=== PATIENT | male | born 1985 ===

== ENCOUNTER 2020-12-30 07:41 | Emergency (ER) | payer MEDICAID, OTHER, SELFPAY ==
[2020-12-30 08:59] VITALS: BP 132/80; PULSE 58; RESP 12; TEMP 36.6; O2SAT 100; BMI 25.0
--- NOTE | 2020-12-30 09:22 | ED.ABDPAIN ---
HPI - Abdominal Pain General Chief Complaint: Abdominal Pain Stated Complaint: abd pain Time Seen by Provider: 12/30/20 09:01 Source: patient Mode of arrival: ambulatory History of Present Illness HPI narrative: 35-year-old male with no significant past medical history presenting to the ED complaining of periumbilical abdominal pain and rectal bleeding worsening x2 weeks. Reports bright red blood per rectum about 2x daily. Reports to similar symptoms in the past. Denies taking anticoagulation. Denies nausea, vomiting, lightheadedness/dizziness, dysuria/hematuria, CP, diarrhea/constipation, history of hemorrhoids MD elicited complaint: abdominal pain Related Data Home Medications Medication Instructions Recorded Confirmed No Known Home Meds 12/30/20 12/30/20 Allergies Allergy/AdvReac Type Severity Reaction Status Date / Time No Known Allergies Allergy Verified 12/30/20 09:04 Review of Systems Review of Systems Constitutional: No Fever, No Chills, No Fatigue, No Malaise Cardiovascular: No Chest Pain, No SOB Respiratory: No Cough, No Dyspnea Gastrointestinal: No Nausea, No Vomiting, No Diarrhea, No Constipation, + Abdominal pain, + Hematochezia, No Melena Genitourinary: No Dysuria, No Urinary Frequency, No Hematuria, No Flank Pain Musculoskeletal: No joint pain, No Joint Swelling Skin: No Skin Lesions, No rash Neuro: No Weakness, No Numbness, No Loss of Consciousness, No Dizziness Yes all other systems are reviewed and are negative Physical Exam Vital Signs: Vital Signs: Last Vital Signs Temp 97.9 F 12/30/20 08:59 Pulse 58 12/30/20 08:59 Resp 12 12/30/20 08:59 BP 132/80 12/30/20 08:59 Pulse Ox 100 12/30/20 08:59 Body Mass Index 25.0 Const: General: cooperative, healthy appearing and no acute distress Orientation/consciousness: patient oriented x3 Limitations: no limitations HENMT: Head: Yes normal to inspection Ears: hearing grossly normal bilaterally General nose exam: Normal external nose present Face and sinus: Yes normal facial exam Eyes: General: appearance normal, both eyes and all related structures EOM: EOMs intact bilaterally Neck: Neck: Yes normal visual inspection and Yes no meningeal signs Resp: Effort & Inspection: normal respiratory effort Cardio: Rate: regular rate GI: Other: Brown stool noted on rectal Inspection: Yes normal to inspection Palpation (GI): Soft to palpation, nontender, no guarding and not rigid Rectal Exam - Male: Yes normal sphincter tone and Yes External hemorrhoid(s) present (Without evidence of thrombosis or active bleeding) : General: Yes no CVA tenderness Back/Spine/Pelvis: Back: no CVA tenderness Skin: Rashes: no rashes Wounds: no wounds Neuro: General: patient oriented x3 and no meningeal signs Gait exam (Neuro): Normal gait present Extrem: General: Yes normal to inspection Course Course Course Narrative: -no leukocytosis, H&H stable, ALT mildly elevated, labs otherwise unremarkable, occult stool negative >bleeding likely hemorrhoidal >> results discussed with patient including close colorectal follow-up MDM - Abdominal Pain MDM Narrative Medical decision making narrative: 35-year-old male with no significant past medical history presenting to the ED complaining of periumbilical abdominal pain and rectal bleeding worsening x2 weeks. On exam VSS, NAD, external hemorrhoid noted on rectal exam, abdomen soft/nontender. Rule out GI bleed vs hemorrhoidal bleeding. Lower concern for diverticulitis/colitis or appendicitis without tenderness on exam. Plan: Labs, UA, occult stool, reassess Medical Records Attestation: I reviewed the patient's medical records. Lab Data Attestation: I reviewed the patient's lab results. Result diagrams: 12/30/20 09:28 12/30/20 09:28 Labs: Lab Results 12/30/20 12/30/20 12/30/20 Range/Units 09:26 09:28 09:28 WBC 6.5 (4.8-10.8) X10*3/uL RBC 4.96 (4.60-5.80) X10*6/uL Hgb 15.7 (14.0-18.0) g/dl Hct 44.4 (42-52) % MCV 89.5 (80-98) fL MCH 31.7 (27.0-33.0) pg MCHC 35.4 (31.0-36.0) g/dl RDW 11.9 (11.0-16.0) % Plt Count 262 (160-400) X10*3/uL MPV 9.7 (9.4-12.4) fL Immature Gran % (Auto) 0.3 (0.0-0.4) % Neut % (Auto) 54.7 (45-73) % Lymph % (Auto) 33.1 (20-40) % [place] % (Auto) 9.7 (2-11) % Eos % (Auto) 1.4 (0-4) % Baso % (Auto) 0.8 (0-2) % Lymph # (Auto) 2.2 (1.2-4.9) X10*3/uL [place] # (Auto) 0.6 (0.1-1.2) X10*3/uL Eos # (Auto) 0.1 (0.0-0.4) X10*3/uL Baso # (Auto) 0.1 (0.0-0.2) X10*3/uL Abs Immat Gran (auto) 0.02 (0.00-0.03) X10*3/uL Absolute Neuts (auto) 3.6 (2.0-8.3) X10*3/uL Absolute Nucleated RBC 0.000 (0.0-0.012) X10*3/uL Nucleated RBC % (auto) 0.0 (0.0-0.2) /100WBC PT (10.8-13.0) SEC INR (0.9-1.1) APTT (24.1-38.0) SEC Sodium 140 (135-145) mmol/L Potassium 4.1 (3.3-5.1) mmol/L Chloride 105 (96-108) mmol/L Carbon Dioxide 28 (22-29) mmol/L Anion Gap 11 L (12-20) BUN 11 (9-16) mg/dL Creatinine 0.97 (0.5-1.4) mg/dL Estim Creat Clear Calc 99.3 Estimated GFR > 60 Random Glucose 100 (60-115) mg/dL Calcium 9.8 (8.4-10.2) mg/dL Magnesium 2.3 (1.6-2.6) mg/dL Total Bilirubin 0.7 (0.0-1.0) mg/dL Direct Bilirubin 0.2 (0.0-0.5) mg/dL AST 37 (5-37) U/L ALT 71 H (0-40) U/L Alkaline Phosphatase 95 (39-117) U/L Total Protein 7.9 (6.5-8.0) g/dL Albumin 4.9 (3.5-5.0) g/dL Lipase (8-78) U/L Stool Occult Blood NEGATIVE (NEGATIVE) 12/30/20 12/30/20 Range/Units 09:28 09:28 WBC (4.8-10.8) X10*3/uL RBC (4.60-5.80) X10*6/uL Hgb (14.0-18.0) g/dl Hct (42-52) % MCV (80-98) fL MCH (27.0-33.0) pg MCHC (31.0-36.0) g/dl RDW (11.0-16.0) % Plt Count (160-400) X10*3/uL MPV (9.4-12.4) fL Immature Gran % (Auto) (0.0-0.4) % Neut % (Auto) (45-73) % Lymph % (Auto) (20-40) % [place] % (Auto) (2-11) % Eos % (Auto) (0-4) % Baso % (Auto) (0-2) % Lymph # (Auto) (1.2-4.9) X10*3/uL [place] # (Auto) (0.1-1.2) X10*3/uL Eos # (Auto) (0.0-0.4) X10*3/uL Baso # (Auto) (0.0-0.2) X10*3/uL Abs Immat Gran (auto) (0.00-0.03) X10*3/uL Absolute Neuts (auto) (2.0-8.3) X10*3/uL Absolute Nucleated RBC (0.0-0.012) X10*3/uL Nucleated RBC % (auto) (0.0-0.2) /100WBC PT 11.9 (10.8-13.0) SEC INR 1.0 (0.9-1.1) APTT 35.8 (24.1-38.0) SEC Sodium (135-145) mmol/L Potassium (3.3-5.1) mmol/L Chloride (96-108) mmol/L Carbon Dioxide (22-29) mmol/L Anion Gap (12-20) BUN (9-16) mg/dL Creatinine (0.5-1.4) mg/dL Estim Creat Clear Calc Estimated GFR Random Glucose (60-115) mg/dL Calcium (8.4-10.2) mg/dL Magnesium (1.6-2.6) mg/dL Total Bilirubin (0.0-1.0) mg/dL Direct Bilirubin (0.0-0.5) mg/dL AST (5-37) U/L ALT (0-40) U/L Alkaline Phosphatase (39-117) U/L Total Protein (6.5-8.0) g/dL Albumin (3.5-5.0) g/dL Lipase 17 (8-78) U/L Stool Occult Blood (NEGATIVE) Discharge Plan Discharge Clinical Impression: Bleeding hemorrhoid Patient Disposition: Home, Self-Care Instructions: Hemorrhoids (ED) Additional Instructions: Your blood count was stable today in the ED Your stool did not have blood in it It is most likely your bleeding from an external hemorrhoid You should follow-up with the colorectal doctor If the bleeding persists or continues to have abdominal pain, fever, nausea or vomiting return to the ED Prescriptions: No Action No Known Home Meds RF: 0 Referrals: Sonido Benjamin [Physician] - 5 days PMF Past Medical History Attestation statement: The following information was validated with the patient. Social History Social History Advance Directives: No Advance Directives Information Provided: No
[2020-12-30 09:35] LABS: MANUAL DIFF FLAG NO
[2020-12-30 09:38] LABS: Basophils Absolute Auto 0.1 X10*3/uL (0.0-0.2); Basophils Percent Auto 0.8 % (0-2); Eosinophils Absolute Auto 0.1 X10*3/uL (0.0-0.4); Eosinophils Percent Auto 1.4 % (0-4); Hematocrit 44.4 % (42-52); Hemoglobin 15.7 g/dl (14.0-18.0); Imm Gran Abs Auto 0.02 X10*3/uL (0.00-0.03); Imm Gran Pct Auto 0.3 % (0.0-0.4); Lymphocytes Absolute Auto 2.2 X10*3/uL (1.2-4.9); Lymphocytes Percent Auto 33.1 % (20-40); Mean Corpuscular HGB Conc 35.4 g/dl (31.0-36.0); Mean Corpuscular Hemoglobin 31.7 pg (27.0-33.0); Mean Corpuscular Volume 89.5 fL (80-98); Mean Platelet Volume 9.7 fL (9.4-12.4); Monocytes Absolute Auto 0.6 X10*3/uL (0.1-1.2); Monocytes Percent Auto 9.7 % (2-11); Neutrophils Absolute Auto 3.6 X10*3/uL (2.0-8.3); Neutrophils Percent Auto 54.7 % (45-73); Platelet Count 262 X10*3/uL (160-400); Red Blood Count 4.96 X10*6/uL (4.60-5.80); Red Cell Distribution Width 11.9 % (11.0-16.0); White Blood Count 6.5 X10*3/uL (4.8-10.8)
[2020-12-30 09:43] LABS: OBS Int Ctl Valid YES; OBS1 NEGATIVE (NEGATIVE)
[2020-12-30 09:49] LABS: Prothrombin Time 11.9 SEC (10.8-13.0)
[2020-12-30 09:52] LABS: Partial Thromboplastin Time 35.8 SEC (24.1-38.0)
[2020-12-30 09:59] LABS: Alanine Aminotransferase 71 U/L (0-40); Albumin Level 4.9 g/dL (3.5-5.0); Alkaline Phosphatase 95 U/L (39-117); Anion Gap 11 (12-20); Aspartate Amino Transferase 37 U/L (5-37); Bilirubin Direct 0.2 mg/dL (0.0-0.5); Bilirubin Total 0.7 mg/dL (0.0-1.0); Blood Urea Nitrogen 11 mg/dL (9-16); Calcium 9.8 mg/dL (8.4-10.2); Carbon Dioxide 28 mmol/L (22-29); Chloride 105 mmol/L (96-108); Creatinine Clr Calc Pharmacy 99.3; Estimated Glomerular Filt Rate > 60; Glucose Random 100 mg/dL (60-115); Lipase 17 U/L (8-78); Magnesium 2.3 mg/dL (1.6-2.6); Potassium 4.1 mmol/L (3.3-5.1); Sodium 140 mmol/L (135-145); Total Protein 7.9 g/dL (6.5-8.0)
== END 2020-12-30 12:10 | disposition home or self-care (01) ==
PROVIDERS: Physician Assistant; Emergency Provider Emergency Medicine
DX: K64.4 Residual hemorrhoidal skin tags (principal); R10.33 Periumbilical pain
CPT/HCPCS: 36415; 80048; 80076; 82272; 83690; 83735; 85025; 85610; 85730; 99282; 99283

== ENCOUNTER 2021-09-17 13:08 | Emergency (ER) | payer MEDICAID, OTHER, SELFPAY ==
--- NOTE | ~2021-09-17 | XR_ITS ---
EXAMINATION: XR LUMBOSACRAL SPINE CLINICAL INFORMATION: Low back pain radiating to right leg x6 months COMPARISON: None TECHNIQUE: Three views of the lumbosacral spine. FINDINGS: There is normal lumbar lordosis. The vertebral heights and alignment is normal. No visible acute fracture, dislocation or subluxation seen. There is no lytic process. XR/XR lumbar spine 2-3V IMPRESSION: Unremarkable lumbar spine exam.
[2021-09-17 13:18] VITALS: BP 111/78; PULSE 78; RESP 18; TEMP 36.8; O2SAT 99; BMI 25.8
--- NOTE | 2021-09-17 14:51 | ED.BACK ---
HPI - Back Pain/Injury General Chief Complaint: Back Pain/Injury Stated Complaint: back pain Source: patient and executive secretary Mode of arrival: ambulatory Limitations: language barrier History of Present Illness HPI Narrative: 36 years old male is here today for increasing lower back pain radiating to right posterior leg. Patient denies injury. Patient reports that the pain started about 6 months ago. 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 Patient denies any acute injury. Patient reports that the getting progressively worse. 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 Patient denies fecal or urinary incontinence. Denies any spinal tenderness. MD elicited complaint: back pain Pertinent past history: prior back pain (For the last 6 months) Onset (ago): month(s) Timing: intermittent Severity: moderate Related Data Previous Rx's Medication Instructions Recorded cyclobenzaprine 10 mg tablet 10 mg PO BID PRN #20 tab 09/17/21 ibuprofen 600 mg tablet 600 mg PO Q8H PRN #20 tab 09/17/21 Allergies Allergy/AdvReac Type Severity Reaction Status Date / Time No Known Allergies Allergy Verified 12/30/20 09:04 Review of Systems Review of Systems: Constitutional : No Weight loss, No Fever, No Chills, No Night Sweats, No Fatigue, No Malaise ENT/Mouth : No Hearing loss, No Ear Pain, No Nasal Congestion, No Sinus Pain, No Hoarseness, No sore throat, No Rhinorrhea, No Swallowing Difficulty Eyes: No Eye Pain, No Swelling, No Redness, No Foreign Body, No Discharge, No Vision Changes Cardiovascular : No Chest Pain, No SOB, No Dyspnea on Exertion, No Orthopnea, No Edema, No Palpitations Respiratory : No Cough, No Sputum, No Wheezing, No Smoke Exposure, No Dyspnea Gastrointestinal : No Nausea, No Vomiting, No Diarrhea, No Constipation, No abdominal Pain, No Hematochezia, No Melena Genitourinary : no irregular bleeding, No Dysuria, No Urinary Frequency, No Hematuria, No Urinary Incontinence, No Urgency, No Flank Pain, No Urinary Flow Changes, No Hesitancy Musculoskeletal : No joint pain, Myalgias, No Joint Swelling, low back pain Skin : No Skin Lesions, No rash Neuro : No Weakness, No Numbness, No Paresthesias, No Loss of Consciousness, No Dizziness, No Headache Yes all other systems are reviewed and are negative [facility] Social History Social History Advance Directives: No Advance Directives Information Provided: Yes Physical Exam Vital Signs: Vital Signs: Last Vital Signs Temp 98.3 F 09/17/21 13:18 Pulse 78 09/17/21 13:18 Resp 18 09/17/21 13:18 BP 111/78 09/17/21 13:18 Pulse Ox 99 09/17/21 13:18 BMI result Body Mass Index 25.8 Const: General: healthy appearing, no acute distress and well developed Nutritional Appearance: well nourished Orientation/consciousness: patient oriented x3 HENMT: Head: Yes normal to inspection, Yes normocephalic and Yes atraumatic Face and sinus: Yes normal facial exam Mouth: Normal oral and palatal mucosa present Throat: Yes posterior oropharynx normal, Yes tonsils normal and Yes uvula midline Eyes: General: appearance normal, both eyes and all related structures Neck: Neck: Yes normal visual inspection, Yes full ROM and Yes trachea midline Thyroid: Thyroid normal Resp: Effort & Inspection: normal respiratory effort, able to speak in complete sentences, no tracheal deviation and symmetric chest movement Auscultation: clear to auscultation bilaterally Cardio: Jugular venous distension: no JVD Rate: regular rate Heart sounds: S1 normal heart sound present, S2 normal heart sound present, no gallops and no murmurs GI: Inspection: Yes normal to inspection and No distended Palpation (GI): Soft to palpation, not firm, nontender and No hepatosplenomegaly present Auscultation: normal bowel sounds : General: Yes no CVA tenderness Back/Spine/Pelvis: Back: no CVA tenderness Cervical Spine: normal cervical lordosis Thoracic/Lumbar Spine: thoracic and lumbar spine normal to inspection Sacroiliac joints: on the left (Tenderness) Skin: General skin exam: elasticity normal, turgor normal and dry skin Neuro: General: patient oriented x3 Psych: Appearance: grossly normal Mental Status: mental status grossly normal Speech and movement: Normal speech and movement present Affect: normal affect Attitude: cooperative Thought process: Normal thought process present Thought content: Normal thought content present Insight: Good insight present (Psych) Judgement: Good judgement present (Psych) Course Course Course Narrative: 36-year-old male is here today for low back pain. Pain in paraspinal muscle region on the right side, radiating to back of right leg. Denies any fecal or urinary incontinence. Negative for spinal tenderness. Will do lumbar spinal x-ray medicate patient with ibuprofen. Reevaluation(s) Reevaluation #1: X-ray negative for any acute processes. Will send patient home with muscle relaxer and ibuprofen. Patient is to follow-up with pain clinic, patient was encouraged to call [facility] for PCP. Patient might need physical therapy. MDM - Back Pain/Injury Imaging Data Lumbosacral spine x-ray: Attestation: I personally reviewed and interpreted this imaging study as follows: Radiologist's impression: FINDINGS: There is normal lumbar lordosis. The vertebral heights and alignment is normal. No visible acute fracture, dislocation or subluxation seen. There is no lytic process. Discharge Plan Discharge Clinical Impression: Strain of lumbar region Patient Disposition: Home, Self-Care Instructions: Chronic Back Pain (DC), Lower Back Exercises (ED) Additional Instructions: Te vieron aqu? hoy por un dolor de espalda. Brock radiograf?a fue negativa para cualquier proceso mignon. Roger un seguimiento con el [facility] de [place] de [place] en [facility]. El n?cale de tel?fono es [phone] Tambi?n puede hacer un seguimiento con el [facility] [place] del [facility]. Se le brandie? gregory?n para relajante muscular. Aseg?rese de no conducir ni operar namita?n equipo pesado mientras mallorie sophie medicamentos. Puede regresar al departamento de emergencias si sophie s?ntomas empeoran o si experimenta alg?n s?ntoma preocupante adicional. Prescriptions: New cyclobenzaprine 10 mg tablet 10 mg PO BID PRN (Reason: muscle spasm) Qty: 20 RF: 0 ibuprofen 600 mg tablet 600 mg PO Q8H PRN (Reason: pain) Qty: 20 RF: 0 Referrals: Félix Doshi MD [Physician] - 1 week (Low back pain radiating to right leg) Interventions: ED Discharge Assessment Last Done: 09/17/21 15:41 Discharge Date/Time: 09/17/21 15:50 Print Language: Thai
[2021-09-17] MEDS: Ibuprofen 600 MG TABLET PO (15:28)
== END 2021-09-17 15:50 | disposition home or self-care (01) ==
PROVIDERS: Emergency Provider Internal Medicine
DX: S39.012A Strain of muscle, fascia and tendon of lower back, initial encounter (principal); X50.0XXA Overexertion from strenuous movement or load, initial encounter; Y93.89 Activity, other specified; Y92.009 Unspecified place in unspecified non-institutional (private) residence as the place of occurrence of the external cause; Y99.0 Civilian activity done for income or pay
CPT/HCPCS: 72100; 99283

== ENCOUNTER 2021-11-12 08:23 | Emergency (ER) | payer MEDICAID, OTHER, SELFPAY ==
[2021-11-12 08:44] VITALS: BP 117/71; PULSE 66; RESP 16; TEMP 36.6; O2SAT 100; BMI 25.0
--- NOTE | 2021-11-12 09:30 | ED.GENADULT ---
HPI - General Adult General Chief complaint: General Medical Stated complaint: abd labs Time Seen by Provider: 11/12/21 09:16 Source: patient History of Present Illness HPI narrative: This is a 36-year-old male who complains of some bright red blood per rectum that he had last week. The patient in the past was told he had hemorrhoid hemorrhoids. He was prescribed some cream. He had a blood test done earlier this week which apparently showed he was anemic and was advised to come to the emergency department. He feels lightheaded at times. Denies any chest pain shortness of breath, abdominal pain or any recent rectal bleeding in the past 3-4 days. He denies any rectal pain. He is not on any anti coagulant Related Data Previous Rx's Medication Instructions Recorded cyclobenzaprine 10 mg tablet 10 mg PO BID PRN #20 tab 09/17/21 ibuprofen 600 mg tablet 600 mg PO Q8H PRN #20 tab 09/17/21 docusate sodium 100 mg capsule 100 mg PO BID 10 Days #20 cap 11/12/21 (Colace) ferrous sulfate 325 mg (65 mg 325 mg PO BID #60 tab 11/12/21 iron) tablet hydrocortisone 2.5 % topical cream 1 appl HI BEDTIME PRN #30 g 11/12/21 with perineal applicator (Anusol-HC) Allergies Allergy/AdvReac Type Severity Reaction Status Date / Time No Known Allergies Allergy Verified 11/12/21 08:44 Review of Systems Review of Systems: Yes all other systems are reviewed and are negative Constitutional: Constitutional: Reports as per HPI and Denies fever(s) Eyes: Eyes: Reports as per HPI and Reports no additional eye complaints ENT: Reports system reviewed and no additional complaints, except as documented, Reports as per HPI, Reports dizziness, Denies nasal congestion, Denies nasal discharge and Denies sore throat Cardiovascular: Cardiovascular: Reports as per HPI, Denies chest pain and Denies dyspnea Respiratory: Respiratory: Reports as per HPI, Denies cough and Denies dyspnea Gastrointestinal: Gastrointestinal: Reports as per HPI, Denies abdominal pain, Reports hematochezia, Denies diarrhea, Denies vomiting and Denies hematemesis Genitourinary: Genitourinary: Reports as per HPI, Denies hematuria, Denies dysuria and Denies urinary frequency Musculoskeletal: Musculoskeletal: Reports no additional musculoskeletal complaints and Denies numbness Integumentary/Breasts: Skin/Breast: Reports as per HPI and Denies rash Neurologic: Reports as per HPI, Reports dizziness, Denies focal weakness and Denies numbness Psychiatric: Psychiatric: Reports no additional psychiatric complaints and Reports as per HPI Endocrine: Endocrine: Reports no additional endocrine complaints and Reports as per HPI Hematologic/Lymphatic: Hematologic/Lymphatic: Reports no additional hematologic/lymphatic complaints, Reports as per HPI and Reports other (No peripheral edema) [facility] Social History Social History Advance Directives: No Advance Directives Information Provided: No Physical Exam ED Vital Signs: Vital Signs - 24 hr 11/12/21 08:44 Temperature 97.8 F Pulse Rate 66 Respiratory Rate 16 Blood Pressure 117/71 Pulse Oximetry 100 BMI result Body Mass Index 25.0 Const General: cooperative and no acute distress Orientation/consciousness: patient oriented x3 HENMT Head: Yes normal to inspection General nose exam: Normal external nose present Mouth: moist mucous membranes Throat: Yes posterior oropharynx normal Eyes General: appearance normal, both eyes and all related structures Eyelids: Yes eyelids normal (Borderline conjunctival pallor) Pupils: Equal, round and reactive pupils present Resp Effort & Inspection: normal respiratory effort Auscultation: clear to auscultation bilaterally Cardio Rate: regular rate Rhythm: regular rhythm Heart sounds: S1 normal heart sound present, S2 normal heart sound present, no gallops, no murmurs and no rubs GI Palpation (GI): Soft to palpation and nontender Rectal Exam - Male: Yes normal sphincter tone, Yes heme negative stool and Yes External hemorrhoid(s) present (Single wound 1.5 cm, not bleeding) Skin Other: Warm and dry, borderline mild pallor Neuro General: patient oriented x3 Cranial nerves: Yes Equal, round and reactive pupils present Psych Speech and movement: Normal speech and movement present Affect: normal affect Medical Decision Making MDM Narrative Medical decision making narrative: Patient had rectal bleeding last week, but it is stopped now. Patient does have an external hemorrhoid on exam but no active bleeding. Rectal exam revealed heme-negative scant material. Patient is moderately anemic but does not require transfusion at this time especially the fact that he does not appear to have any active bleeding anymore. Will treat patient with Anusol-HC, stool softener, iron, and the patient can follow up with Gastroenterology or his primary care physician Lab Data Lab results reviewed: Yes I reviewed the patient's lab results. Result diagrams: 11/12/21 09:33 11/12/21 09:33 Labs: Lab Results 11/12/21 11/12/21 11/12/21 Range/Units 09:32 09:33 09:33 WBC 4.5 L (4.8-10.8) X10*3/uL RBC 3.62 L (4.60-5.80) X10*6/uL Hgb 9.1 L (14.0-18.0) g/dl Hct 29.6 L (42.0-52.0) % MCV 81.8 (80.0-98.0) fL MCH 25.1 L (27.0-33.0) pg MCHC 30.7 L (31.0-36.0) g/dl RDW 13.0 (11.0-16.0) % Plt Count 318 (160-400) X10*3/uL MPV 9.1 L (9.4-12.4) fL Immature Gran % (Auto) 0.2 (0.0-0.4) % Neut % (Auto) 46.2 (45-73) % Lymph % (Auto) 39.1 (20-40) % [place] % (Auto) 11.2 H (2-11) % Eos % (Auto) 2.2 (0-4) % Baso % (Auto) 1.1 (0-2) % Lymph # (Auto) 1.8 (1.2-4.9) X10*3/uL [place] # (Auto) 0.5 (0.1-1.2) X10*3/uL Eos # (Auto) 0.1 (0.0-0.4) X10*3/uL Baso # (Auto) 0.1 (0.0-0.2) X10*3/uL Abs Immat Gran (auto) 0.01 (0.00-0.03) X10*3/uL Absolute Neuts (auto) 2.1 (2.0-8.3) x10*3/uL Absolute Nucleated RBC 0.000 (0.0-0.012) X10*3/uL Nucleated RBC % (auto) 0.0 (0.0-0.2) /100WBC Sodium 140 (135-145) mmol/L Potassium 4.1 (3.3-5.1) mmol/L Chloride 108 (96-108) mmol/L Carbon Dioxide 29 (22-29) mmol/L Anion Gap 7 L (12-20) BUN 12 (9-16) mg/dL Creatinine 0.89 (0.5-1.4) mg/dL Estim Creat Clear Calc 107.2 Estimated GFR > 60 Random Glucose 101 (60-115) mg/dL Calcium 9.7 (8.4-10.2) mg/dL Total Bilirubin 0.4 (0.0-1.0) mg/dL AST 22 D (5-37) U/L ALT 35 (0-40) U/L Alkaline Phosphatase 75 D (39-117) U/L Total Protein 7.1 (6.5-8.0) g/dL Albumin 4.4 (3.5-5.0) g/dL Stool Occult Blood NEGATIVE (NEGATIVE) Discharge Plan Discharge Clinical Impression: External hemorrhoid, Anemia Patient Disposition: Home, Self-Care Instructions: Hemorrhoids (ED), Anemia (ED) Additional Instructions: Follow-up with Gastroenterology. Return for any new or worsened symptoms such as recurrent rectal bleeding, dizziness, chest pain or shortness of breath. You do have moderate anemia however at this point he did not require a blood transfusion, and her bleeding seems to have stopped. Use Anusol-HC as prescribed for the hemorrhoid. Drink plenty of water and use a stool softener such as Colace 100 mg twice a day for the next 10 days. Use the iron as prescribed to help you replete your red blood cells. Prescriptions: New hydrocortisone [Anusol-HC] 2.5 % cream with perineal applicator 1 appl HI BEDTIME PRN (Reason: hemorrhoids) Qty: 30 0RF ferrous sulfate 325 mg (65 mg iron) tablet 325 mg PO BID Qty: 60 0RF docusate sodium [Colace] 100 mg capsule 100 mg PO BID 10 Days Qty: 20 0RF No Action cyclobenzaprine 10 mg tablet 10 mg PO BID PRN (Reason: muscle spasm) Qty: 20 0RF ibuprofen 600 mg tablet 600 mg PO Q8H PRN (Reason: pain) Qty: 20 0RF Referrals: Mitchel Elizabeth [Physician] - 3 days Discharge Date/Time: 11/12/21 10:33
[2021-11-12 09:37] LABS: MANUAL DIFF FLAG NO
[2021-11-12 09:40] LABS: Basophils Absolute Auto 0.1 X10*3/uL (0.0-0.2); Basophils Percent Auto 1.1 % (0-2); Eosinophils Absolute Auto 0.1 X10*3/uL (0.0-0.4); Eosinophils Percent Auto 2.2 % (0-4); Hematocrit 29.6 % (42.0-52.0); Hemoglobin 9.1 g/dl (14.0-18.0); Imm Gran Abs Auto 0.01 X10*3/uL (0.00-0.03); Imm Gran Pct Auto 0.2 % (0.0-0.4); Lymphocytes Absolute Auto 1.8 X10*3/uL (1.2-4.9); Lymphocytes Percent Auto 39.1 % (20-40); Mean Corpuscular HGB Conc 30.7 g/dl (31.0-36.0); Mean Corpuscular Hemoglobin 25.1 pg (27.0-33.0); Mean Corpuscular Volume 81.8 fL (80.0-98.0); Mean Platelet Volume 9.1 fL (9.4-12.4); Monocytes Absolute Auto 0.5 X10*3/uL (0.1-1.2); Monocytes Percent Auto 11.2 % (2-11); Neutrophils Absolute Auto 2.1 x10*3/uL (2.0-8.3); Neutrophils Percent Auto 46.2 % (45-73); Platelet Count 318 X10*3/uL (160-400); Red Blood Count 3.62 X10*6/uL (4.60-5.80); White Blood Count 4.5 X10*3/uL (4.8-10.8)
[2021-11-12 09:41] LABS: OBS1 NEGATIVE (NEGATIVE)
[2021-11-12 09:42] LABS: OBS Int Ctl Valid YES
[2021-11-12 10:05] LABS: Alanine Aminotransferase 35 U/L (0-40); Albumin Level 4.4 g/dL (3.5-5.0); Alkaline Phosphatase 75 U/L (39-117); Anion Gap 7 (12-20); Aspartate Amino Transferase 22 U/L (5-37); Bilirubin Total 0.4 mg/dL (0.0-1.0); Blood Urea Nitrogen 12 mg/dL (9-16); Calcium 9.7 mg/dL (8.4-10.2); Carbon Dioxide 29 mmol/L (22-29); Chloride 108 mmol/L (96-108); Creatinine Clr Calc Pharmacy 107.2; Estimated Glomerular Filt Rate > 60; Glucose Random 101 mg/dL (60-115); Potassium 4.1 mmol/L (3.3-5.1); Sodium 140 mmol/L (135-145); Total Protein 7.1 g/dL (6.5-8.0)
== END 2021-11-12 10:33 | disposition home or self-care (01) ==
PROVIDERS: Emergency Provider Emergency Medicine
DX: K64.4 Residual hemorrhoidal skin tags (principal); D64.9 Anemia, unspecified
CPT/HCPCS: 36415; 80053; 82272; 85025; 99283; 99284

== ENCOUNTER 2022-10-10 07:01 | Emergency (ER) | payer OTHER, SELFPAY ==
--- NOTE | ~2022-10-10 | XR_ITS ---
EXAMINATION: XR KNEE, RIGHT CLINICAL INFORMATION: Pain, injury 4 days ago. COMPARISON: None TECHNIQUE: Four views of the right knee. FINDINGS: No acute fracture or malalignment. Small joint effusion. No significant degenerative changes. No unexpected radiopaque foreign bodies. XR/XR knee RT 4V IMPRESSION: No acute fracture or malalignment. Small joint effusion.
[2022-10-10 07:20] VITALS: BP 108/56; PULSE 57; RESP 14; TEMP 36.4; O2SAT 100; BMI 26.6
[2022-10-10 09:12] VITALS: BP 124/72; PULSE 56; RESP 18; TEMP 36.6; O2SAT 100
--- NOTE | 2022-10-10 09:13 | ED.LOWEXIN ---
HPI - Extremity Injury (Lower) General Chief Complaint: Extremity Injury, Lower Stated Complaint: R knee pain Time Seen by Provider: 10/10/22 09:13 Source: patient Mode of arrival: ambulatory Limitations: no limitations History of Present Illness HPI Narrative: 37 yo male presents to the ER with right knee pain after he twisted it at work on 10/06. He reports he had pain after he was kneeling on his knee and twisted it when he was trying to get up. 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 He reports pain and swelling since which he thought would go away with time. He has been taking Tylenol with no relief. He reports the pain is right in the middle of the knee, worse with ambulation and going up/down stairs. No popping or giving out sensation. No other injuries. MD complaint: knee injury Onset (ago): day(s) (5) Injury: Left: knee Type of Injury: inversion Place: work Severity: moderate Severity scale (1-10): 5 Relieving factors: rest Exacerbating factors: weight bearing Context: walking Associated symptoms: swelling and ambulatory Other symptoms: none Related Data Previous Rx's Medication Instructions Recorded cyclobenzaprine 10 mg tablet 10 mg PO BID PRN muscle spasm #20 09/17/21 tabs ibuprofen 600 mg tablet 600 mg PO Q8H PRN pain #20 tabs 09/17/21 docusate sodium 100 mg capsule 100 mg PO BID 10 days #20 caps 11/12/21 (Colace) ferrous sulfate 325 mg (65 mg 325 mg PO BID #60 tabs 11/12/21 iron) tablet hydrocortisone 2.5 % topical cream 1 appl [place] BEDTIME PRN hemorrhoids 11/12/21 with perineal applicator #30 grams (Anusol-HC) ibuprofen 600 mg tablet 600 mg PO Q8H PRN pain #20 tabs 10/10/22 Allergies Allergy/AdvReac Type Severity Reaction Status Date / Time No Known Allergies Allergy Verified 11/12/21 08:44 Review of Systems Review of Systems: Yes all other systems are reviewed and are negative Physical Exam Vital Signs: Vital Signs: Last Vital Signs Temp 97.9 F 10/10/22 09:12 Pulse 56 10/10/22 09:12 Resp 18 10/10/22 09:12 BP 124/72 10/10/22 09:12 Pulse Ox 100 10/10/22 09:12 O2 Del Method 10/10/22 09:12 BMI result Body Mass Index 26.6 Appearance: Alert. Oriented X3. No acute distress. HEENT: normal inspection CVS: Normal heart rate and rhythm. Pulses normal. Respiratory: No respiratory distress. Skin: Skin warm and dry. Normal skin color. Normal skin turgor. No rashes. Extremities: Odhr-iu-amtlvhma generalized swelling of the right knee, normal range of motion. No joint laxity appreciated, negative anterior drawer, no pain with varus or valgus stress. Normal palpation of the patella with some tenderness. Neuro: Oriented X 3. No motor deficit. No sensory deficit. Steady gait. Course Course Course Narrative: 37-year-old male presenting for evaluation of right knee pain and swelling after a twisting injury at work 5 days ago. He is ambulatory. X-ray showing no acute fracture or malalignment, there is a small joint effusion. Possible knee sprain or strain. Also could have underlying ligamentous injury, although ACL appears to be intact on examination. Will treat conservatively with rest, ice, compression, elevation and NSAIDs. Will have him follow-up with orthopedics if pain and swelling persist. Patient agrees with plan. 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 Stable for discharge home. Medical Decision Making Differential Diagnosis Differential Diagnoses: The differential diagnosis associated with the presentation includes Knee sprain, strain, MCL injury, ACL injury, meniscus injury, less likely septic joint, patellar tendon injury or patella injury. Independent Interpretation I performed an independent interpretation of an: Plain X-Ray Interpretation: Mild swelling noted, no fracture or dislocation. Radiology Impression Discussion of test interpretation with radiology: I have reviewed the radiologist's reading. Radiologist Impression: XR/XR knee RT 4V IMPRESSION: No acute fracture or malalignment. Small joint effusion. External Record Review External record reviewed: Prior outpatient labs and Prior outpatient radiology Tests considered The following testing was considered but not selected: Joint is not red or hot to suggest the need for arthrocentesis. Prescription Management I considered prescription management with: Pain Medication NSAIDs for pain control and anti-inflammatory effect. Critical Care Time Critical Care Time Critical Care Time: No Discharge Plan Discharge Clinical Impression: Effusion of knee Patient Disposition: Home, Self-Care Instructions: Swollen Knee Joint (ED) Additional Instructions: Your x-ray today showed a small joint effusion, or fluid on the knee. This is common after injury. Recommend rest, ice, compression with JEANNIE wrap or brace and elevating your knee when possible. Take the prescribed medication as needed for pain and swelling. If you have ongoing pain and swelling after 1 week of rest, recommend following up with the Orthopedic office - name and number below. If you develop new or worsening symptoms call 911 or come back to the ER for further evaluation. Brock radiograf?a de hoy mostr? un klever?o derrame articular o l?quido en la rodilla. [place] es com?n despu?s de adebayo lesi?n. Recomiende reposo, hielo, compresi?n con vendaje JEANNIE o aparato ortop?dico y elevar la rodilla cuando sea posible. [place] el medicamento recetado seg?n sea necesario para el dolor y la hinchaz?n. Si tiene dolor e hinchaz?n continuos despu?s de 1 semana de descanso, recomiende hacer un seguimiento con el consultorio ortop?dico: nombre y n?cale a continuaci?n. Si desarrolla s?ntomas nuevos o que empeoran, llame al 911 o regrese a la negrito de emergencias para adebayo evaluaci?n adicional. Prescriptions: New ibuprofen 600 mg tablet 600 mg PO Q8H PRN (Reason: pain) Qty: 20 0RF No Action hydrocortisone [Anusol-HC] 2.5 % cream with perineal applicator 1 appl [place] BEDTIME PRN (Reason: hemorrhoids) Qty: 30 0RF ferrous sulfate 325 mg (65 mg iron) tablet 325 mg PO BID Qty: 60 0RF docusate sodium [Colace] 100 mg capsule 100 mg PO BID 10 Days Qty: 20 0RF cyclobenzaprine 10 mg tablet 10 mg PO BID PRN (Reason: muscle spasm) Qty: 20 0RF ibuprofen 600 mg tablet 600 mg PO Q8H PRN (Reason: pain) Qty: 20 0RF Referrals: [facility] [Provider Group] (right knee pain, small effusion, possible ligamentous injury) [facility] [Primary Care Provider] - Stand Alone Forms: Work/School Release
== END 2022-10-10 09:42 | disposition home or self-care (01) ==
PROVIDERS: Emergency Provider Emergency Medicine
DX: M25.461 Effusion, right knee (principal); M25.561 Pain in right knee
CPT/HCPCS: 73564; 99283

== ENCOUNTER 2022-11-20 14:09 | Outpatient (REF) | payer MEDICAID, OTHER, SELFPAY ==
--- NOTE | ~2022-11-20 | US_ITS ---
EXAMINATION: US SCROTUM CLINICAL INFORMATION: Left testicular pain. COMPARISON: None TECHNIQUE: A sonogram of the scrotum was performed assessing gonzales-scale appearance and color Doppler flow. Spectral Doppler analysis of the arterial and venous flow were performed in the testes bilaterally. FINDINGS: RIGHT: Right testicle measures 5.8 x 2.5 x 2.9 cm, volume 22.3 mL. No focal testicular parenchymal lesions are visualized. Spectral Doppler analysis of the arterial and venous flow is normal in the right testis. Right epididymal head is normal in size. No right varicocele is seen. There is a small left hydrocele. Right epididymal Doppler flow is normal. LEFT: Left testicle measures 4.9 x 2.6 x 3.6 cm, volume 23.4 mL. No focal testicular parenchymal lesions are visualized. Spectral Doppler analysis of the arterial and venous flow is normal in the left testis. Left epididymal head is normal in size. There is a small left epididymal cyst measuring 0.5 x 0.5 x 0.5 cm. There is a small left hydrocele. No left varicocele is seen. Left epididymal Doppler flow is normal. US/US scrotum IMPRESSION: Left epididymal head cyst measuring 5 mm. Bilateral small hydroceles. Bilateral testes and epididymis are otherwise normal with normal vascular flow.
== END 2022-11-20 14:10 | disposition home or self-care (01) ==
LOC: HO.US 14:09
PROVIDERS: Visit Provider Internal Medicine Geriatric Medicine
DX: N50.812 Left testicular pain (principal)
CPT/HCPCS: 76870

== ENCOUNTER 2024-02-06 12:56 | Emergency (ER) | payer SELFPAY ==
--- NOTE | ~2024-02-06 | CT_ITS ---
EXAMINATION: CT ABDOMEN AND PELVIS WITHOUT CONTRAST CLINICAL INFORMATION: Left lower quadrant pain. COMPARISON: None available. TECHNIQUE: Multidetector volumetric imaging was performed from the superior aspect of the liver through the pubic symphysis. Sagittal and coronal reformatted images were obtained on the technologist's workstation. This CT examination was performed using dose optimization techniques as appropriate, variously including the following: *Automated exposure control *Adjustment of mA and/or kV according to patient size (this includes techniques or standardized protocols for targeted exams where dose is matched to indication/reason for exam; i.e. extremities or head) *Use of iterative reconstruction technique DLP: 387 mGy-cm FINDINGS: Overall quality of exam is limited by motion artifact. LUNG BASES: Limited evaluation with no significant abnormality visible. LIVER, GALLBLADDER, AND BILIARY TREE: The liver is normal in size, shape, and attenuation. No focal hepatic lesion or biliary ductal dilatation is present. The gallbladder is unremarkable with no evidence of radiopaque gallstones, gallbladder wall thickening, or obvious pericholecystic inflammatory changes. PANCREAS: No discrete pancreatic mass or ductal dilatation. SPLEEN: Unremarkable. ADRENAL GLANDS: Unremarkable. KIDNEYS AND URETERS: The kidneys are normal in size, shape, and attenuation. No hydronephrosis, hydroureter, or calculi seen. No perinephric stranding. BLADDER: Unremarkable. GASTROINTESTINAL TRACT: The small and large bowel are normal in caliber. The appendix appears normal. Left-sided colonic diverticulosis. There is stranding in the pericolonic fat around the distal descending colon consistent with acute diverticulitis. There is no visible abscess. ABDOMINAL WALL: No significant hernia is appreciated. LYMPH NODES: No lymphadenopathy. VASCULAR: No aortic aneurysm. PELVIC VISCERA: The prostate appears normal. OSSEOUS STRUCTURES: No acute osseous abnormalities CT/CT abdomen pelvis wo IV con IMPRESSION: Limited evaluation due to respiratory motion artifact. Acute uncomplicated diverticulitis of the distal descending colon.
[2024-02-06 12:58] VITALS: BP 134/83; PULSE 91; RESP 16; TEMP 36.6; O2SAT 98; BMI 26.6
--- NOTE | 2024-02-06 12:59 | ED.GENADULT ---
HPI - General Adult General Chief complaint: Abdominal Pain Stated complaint: Abd pain Time Seen by Provider: 02/06/24 14:16 Source: patient and old records reviewed Mode of arrival: ambulatory Limitations: no limitations History of Present Illness ED Provider: DC HERRERA narrative: 38 yo male otherwise healthy here with LLQ pain starting at 6am today that has worsened no fevers, n/v no diarrhea. No bloody stools, no travel or antibiotic use. Notes he had a colonoscopy once in the past that was normal. MD complaint: abdominal pain Onset (ago): day(s) (6am today) Location: abdomen Radiation: non-radiation Severity: moderate Quality: aching, dull and constant Pain Consistency: constant Relieving factors: none Exacerbating factors: movement Associated symptoms: denies other symptoms Treatments prior to arrival: none Related Data Previous Rx's ?Medication ?Instructions ?Recorded cyclobenzaprine 10 mg tablet 10 mg PO BID PRN muscle spasm #20 09/17/21 tabs ibuprofen 600 mg tablet 600 mg PO Q8H PRN pain #20 tabs 09/17/21 docusate sodium 100 mg capsule 100 mg PO BID 10 days #20 caps 11/12/21 (Colace) ferrous sulfate 325 mg (65 mg 325 mg PO BID #60 tabs 11/12/21 iron) tablet hydrocortisone 2.5 % topical cream 1 appl [place] BEDTIME PRN hemorrhoids 11/12/21 with perineal applicator #30 grams (Anusol-HC) ibuprofen 600 mg tablet 600 mg PO Q8H PRN pain #20 tabs 10/10/22 amoxicillin 875 mg-potassium 1 tab PO BID #19 tabs 02/06/24 clavulanate 125 mg tablet ibuprofen 600 mg tablet 600 mg PO Q6H PRN pain #30 tabs 02/06/24 morphine 15 mg immediate release 15 mg PO Q6H PRN pain #10 tabs 02/06/24 tablet ondansetron 4 mg disintegrating 4 mg PO Q8H PRN nausea and 02/06/24 tablet vomiting #20 tabs Allergies Allergy/AdvReac Type Severity Reaction Status Date / Time No Known Allergies Allergy Verified 02/06/24 12:59 Review of Systems Review of Systems: Constitutional : No Weight loss, No Fever, No Chills ENT/Mouth : No sore throat, No Rhinorrhea Eyes: No Swelling, No Redness Cardiovascular : No Chest Pain, No SOB, NoEdema Respiratory : No Cough, No Sputum, No Wheezing Gastrointestinal : no Nausea, no Vomiting, no Diarrhea, positive abdominal Pain, No Hematochezia, No Melena Genitourinary : No Dysuria, No Urinary Frequency, No Hematuria, No Urgency Musculoskeletal : No joint pain, No Myalgias, No Joint Swelling Skin : No Skin Lesions, No rash Neuro : No Weakness, No Numbness, No Dizziness, No Headache Psych : No Anxiety/Panic, No Depression All other systems reviewed and are negative. [facility] Past Medical History Attestation statement: The following information was validated with the patient. Source: old records reviewed Medical History No pertinent past medical history Social History Social History (Updated 02/06/24 @ 14:41 by Camille Gaines DO) Patient Tobacco Use Status: Never used Tobacco Advance Directives: No Physical Exam ED Vital Signs: Vital Signs - 24 hr 02/06/24 12:58 02/06/24 14:18 Temperature 98 F 98.1 F Pulse Rate 91 74 Respiratory Rate 16 14 Blood Pressure 134/83 125/80 Pulse Oximetry 98 100 Oxygen Delivery Method Room Air Room Air BMI result Body Mass Index 26.6 Appearance: Alert. Oriented X3. No acute distress. Eyes: Pupils equal, round and reactive to light. ENT: Pharynx normal. Neck: Normal inspection. Neck supple. CVS: Normal heart rate and rhythm. Pulses normal. Respiratory: No respiratory distress. Breath sounds normal. Abdomen: Soft and moderate ttp in LLQ no rebound or guarding. Skin: Skin warm and dry. Normal skin color. Normal skin turgor. Extremities: No lower extremity edema. No calf ttp Neuro: Oriented X 3. No motor deficit. No sensory deficit. Course Course Course Narrative: This is an RME done by [facility]: Additional HPI, ROS, PE not included below will be deferred to primary provider. 38 year old male presents w/ LLQ abd tenderness since this am. NO a/c nausea, vomiting, fevers, chills. No sick contacts. He denies alcohol consumption. Normal urinary and bowel habits. Denies cp, sob, headache, vision changes, dizziness, weakness. Appearance: Alert.? Oriented X3.? No acute cardiopulmonary distress distress.? Head: Normocephalic, atraumatic, no step-offs or deformities ENT: Pharynx normal.??External ears normal, TMs normal bilaterally and EAC's normal. No pain with manipulation of external ears bilaterally. No mastoid tenderness. Neck: Normal inspection.? Neck supple.? CVS: Pulses normal.? Respiratory: No respiratory distress.? Abdomen: Soft and +LLQ ttp on exam.? Skin: ? Normal skin color. Extremities: 5/5 strength to bilateral upper and lower extremities Neuro: Oriented X 3.? No motor deficit.? No sensory deficit. Medications Administered Discontinued Medications Generic Name Dose Route Start Last Admin Trade Name Freq PRN Reason Stop Dose Admin Amoxicillin/Clavulanate Potassium 875 mg 02/06/24 14:02/06/24 14:51 Amoxicillin/Potassium Clav 875 Mg Tablet PO 02/06/24 14:27 875 mg ONCE ONE Administration Morphine Sulfate 15 mg 02/06/24 14:26 02/06/24 14:51 Morphine Sulfate Immed Release 15 Mg Tablet PO 02/06/24 14:27 15 mg ONCE ONE Administration Ondansetron HCl 4 mg 02/06/24 14:26 02/06/24 14:52 Ondansetron Odt 4 Mg Tab.Rapdis TRANSLINGU 02/06/24 14:27 4 mg ONCE ONE Administration Medical Decision Making Medical Decision Making [facility] Narrative: 38 yo male with no sig PMH here with LLQ pain but no associated n/v fevers GIB symptoms at this time labs, CT scan for renal colic, colitis, diverticulitis ordered. PO pain control. Suspect diverticulitis Differential Diagnosis Differential Diagnoses: The differential diagnosis associated with the presentation includes colitis, diverticulitis Admission/Observation Consideration of admission/observation: Escalation of care including admission/observation considered not toxic able to tolerate PO stable for DC Lab Data [facility] Lab Attestation statement: I reviewed the patient's lab results. 02/06/24 13:24 02/06/24 13:24 Labs: Lab Results 02/06/24 Range/Units 13:24 WBC 9.5 (4.8-10.8) X10*3/uL RBC 4.65 D (4.60-5.80) X10*6/uL Hgb 15.0 D (14.0-18.0) g/dl Hct 41.9 L D (42.0-52.0) % MCV 90.1 (80.0-98.0) fL MCH 32.3 (27.0-33.0) pg MCHC 35.8 (31.0-36.0) g/dl RDW 11.9 (11.0-16.0) % Plt Count 233 D (160-400) X10*3/uL MPV 9.2 L (9.4-12.4) fL Immature Gran % (Auto) 0.4 (0.0-0.4) % Neut % (Auto) 77.1 H (45-73) % Lymph % (Auto) 14.2 L (20-40) % [place] % (Auto) 7.2 (2-11) % Eos % (Auto) 0.6 (0-4) % Baso % (Auto) 0.5 (0-2) % Lymph # (Auto) 1.3 (1.2-4.9) X10*3/uL [place] # (Auto) 0.7 (0.1-1.2) X10*3/uL Eos # (Auto) 0.1 (0.0-0.4) X10*3/uL Baso # (Auto) 0.1 (0.0-0.2) X10*3/uL Abs Immat Gran (auto) 0.04 H (0.00-0.03) X10*3/uL Absolute Neuts (auto) 7.3 (2.0-8.3) x10*3/uL Absolute Nucleated RBC 0.000 (0.0-0.012) X10*3/uL Nucleated RBC % (auto) 0.0 (0.0-0.2) /100WBC Sodium 140 (135-145) mmol/L Potassium 4.6 (3.3-5.1) mmol/L Chloride 105 (96-108) mmol/L Carbon Dioxide 27 (22-29) mmol/L Anion Gap 13 (12-20) BUN 11 (9-16) mg/dL Creatinine 1.08 (0.5-1.4) mg/dL Estim Creat Clear Calc 80.6 Estimated GFR > 60 Random Glucose 94 (60-115) mg/dL Calcium 9.9 (8.4-10.2) mg/dL Total Bilirubin 0.3 (0.0-1.0) mg/dL AST 27 (5-37) U/L ALT 40 (0-40) U/L Alkaline Phosphatase 86 (39-117) U/L Total Protein 8.1 H (6.5-8.0) g/dL Albumin 4.9 (3.5-5.0) g/dL Lipase 18 (8-78) U/L Independent Interpretation I performed an independent interpretation of an: CT Scan (diverticulitis) Radiology Impression Discussion of test interpretation with radiology: I have reviewed the radiologist's reading. External Record Review External record reviewed: Office record Prescription Management I considered prescription management with: Pain Medication and Antibiotic Discharge Plan Discharge Clinical Impression: Diverticulitis Patient Disposition: Home, Self-Care Instructions: Diverticulitis (ED) Additional Instructions: return for worsening pain, fevers, bloody stools vomiting or any other concerns take antibiotics CT/CT abdomen pelvis wo IV con IMPRESSION: Limited evaluation due to respiratory motion artifact. Acute uncomplicated diverticulitis of the distal descending colon. Prescriptions: New ibuprofen 600 mg tablet 600 mg PO Q6H PRN (Reason: pain) Qty: 30 0RF morphine 15 mg tablet 15 mg PO Q6H PRN (Reason: pain) Qty: 10 0RF Rx Instructions: partial fill okay; Partial Fill upon patient request. ondansetron 4 mg tablet,disintegrating 4 mg PO Q8H PRN (Reason: nausea and vomiting) Qty: 20 0RF amoxicillin-pot clavulanate 875-125 mg tablet 1 tab PO BID Qty: 19 0RF No Action hydrocortisone [Anusol-HC] 2.5 % cream with perineal applicator 1 appl [place] BEDTIME PRN (Reason: hemorrhoids) Qty: 30 0RF ferrous sulfate 325 mg (65 mg iron) tablet 325 mg PO BID Qty: 60 0RF docusate sodium [Colace] 100 mg capsule 100 mg PO BID 10 Days Qty: 20 0RF ibuprofen 600 mg tablet 600 mg PO Q8H PRN (Reason: pain) Qty: 20 0RF cyclobenzaprine 10 mg tablet 10 mg PO BID PRN (Reason: muscle spasm) Qty: 20 0RF ibuprofen 600 mg tablet 600 mg PO Q8H PRN (Reason: pain) Qty: 20 0RF Stand Alone Forms: Work/School Release Print Language: French
[2024-02-06 13:30] LABS: MANUAL DIFF FLAG NO
[2024-02-06 13:34] LABS: Basophils Absolute Auto 0.1 X10*3/uL (0.0-0.2); Basophils Percent Auto 0.5 % (0-2); Eosinophils Absolute Auto 0.1 X10*3/uL (0.0-0.4); Eosinophils Percent Auto 0.6 % (0-4); Hematocrit 41.9 % (42.0-52.0); Imm Gran Abs Auto 0.04 X10*3/uL (0.00-0.03); Imm Gran Pct Auto 0.4 % (0.0-0.4); Lymphocytes Absolute Auto 1.3 X10*3/uL (1.2-4.9); Lymphocytes Percent Auto 14.2 % (20-40); Mean Corpuscular HGB Conc 35.8 g/dl (31.0-36.0); Mean Corpuscular Hemoglobin 32.3 pg (27.0-33.0); Mean Corpuscular Volume 90.1 fL (80.0-98.0); Mean Platelet Volume 9.2 fL (9.4-12.4); Monocytes Absolute Auto 0.7 X10*3/uL (0.1-1.2); Monocytes Percent Auto 7.2 % (2-11); Neutrophils Absolute Auto 7.3 x10*3/uL (2.0-8.3); Neutrophils Percent Auto 77.1 % (45-73); Platelet Count 233 X10*3/uL (160-400); Red Blood Count 4.65 X10*6/uL (4.60-5.80); Red Cell Distribution Width 11.9 % (11.0-16.0); White Blood Count 9.5 X10*3/uL (4.8-10.8)
[2024-02-06 13:46] LABS: Alanine Aminotransferase 40 U/L (0-40); Albumin Level 4.9 g/dL (3.5-5.0); Alkaline Phosphatase 86 U/L (39-117); Anion Gap 13 (12-20); Aspartate Amino Transferase 27 U/L (5-37); Bilirubin Total 0.3 mg/dL (0.0-1.0); Blood Urea Nitrogen 11 mg/dL (9-16); Calcium 9.9 mg/dL (8.4-10.2); Carbon Dioxide 27 mmol/L (22-29); Chloride 105 mmol/L (96-108); Creatinine Clr Calc Pharmacy 80.6; Estimated Glomerular Filt Rate > 60; Glucose Random 94 mg/dL (60-115); Lipase 18 U/L (8-78); Potassium 4.6 mmol/L (3.3-5.1); Sodium 140 mmol/L (135-145); Total Protein 8.1 g/dL (6.5-8.0)
[2024-02-06 14:18] VITALS: BP 125/80; PULSE 74; RESP 14; TEMP 36.7; O2SAT 100
[2024-02-06] MEDS: Morphine Sulfate Immed Release 15 MG TABLET PO (14:51)
[2024-02-06] MEDS: Amoxicillin/Potassium Clav 875 MG TABLET PO (14:51)
[2024-02-06] MEDS: Ondansetron ODT 4 MG TAB.RAPDIS TRANSLINGU (14:52)
[2024-02-06 15:46] VITALS: BP 125/80; PULSE 74; RESP 18; TEMP 36.7; O2SAT 100
== END 2024-02-06 15:47 | disposition home or self-care (01) ==
PROVIDERS: Physician Assistant; Emergency Provider Emergency Medicine
DX: K57.32 Diverticulitis of large intestine without perforation or abscess without bleeding (principal); R10.32 Left lower quadrant pain
CPT/HCPCS: 36415; 74176; 80053; 83690; 85025; 99283; 99284